=== PATIENT | male | born 1935 | race Caucasian/White ===

== ENCOUNTER 2017-08-09 03:37 | Emergency (ER) | payer MEDICARE ==
[~2017-08-09] VITALS: Ht 188 cm; Wt 102.0 kg
--- NOTE | ~2017-08-09 | HP ---
Unit #: [id number] #: [id number] Patient: LAZARUS SMITH SR [id number] [address] [place], [place] [address] [id number] MR#: [id number] NAME: LAZARUS SMITH ROOM: Age: 82 Sex: M Admission Date: 08/09/2017 : 1935 Attending Physician: Eliel Gardner D.O. Primary Care Physician: Rosario Diop HISTORY AND PHYSICAL CHIEF COMPLAINT Shortness of breath and chest discomfort. HISTORY OF PRESENT ILLNESS The patient is an 82-year-old male with history of coronary artery disease, anterolateral STEMI in 2010, LAD thrombectomy and stent in November 2011, systolic CHF with an EF of 35% to 40% in November 2011, hypertension, hyperlipidemia who presented to the emergency department with complaints of shortness of breath. The patient states that he woke at 3 a.m. with difficulty getting a deep breath. There was also epigastric and upper abdominal discomfort. He states that the pain was worse with deep inspiration. There was no associated nausea, vomiting, or diaphoresis. The patient has a history of GERD and he states that this discomfort was unlike what he has experienced in the past with his GERD and unlike what he experienced with his MD. He does state that he ate a late dinner. He is fairly active and uses a push mower and denies problems with chest discomfort with this activity or other exertional activities. A 2D echo in November 2011 showed an EF of 35% to 40% with distal anterior and apical wall hypokinesis. He had a left heart catheterization January 13, 2011 which showed an ejection fraction of 35% to 40%. RCA had a 40% to 50% proximal stenosis and a 40% to 50% mid stenosis. PDA had a mid 70% to 80% stenosis. Left circumflex had a 30% stenosis but with luminal irregularities. First diagonal had 30% proximal to mid luminal irregularities. LAD had mild proximal to mid calcifications. There was a bulky thrombotic proximal 90% stenosis in the LAD just after the first septal revenue cycle analyst. First diagonal had 20% to 30% proximal stenosis and was occluded in the mid portion. There were collaterals filling the distal first diagonal branch. PAST MEDICAL HISTORY 1. CAD with anterolateral STEMI in 2010. 2. LAD thrombectomy and stenting with Xience stent, November 12, 2011. 3. Hypertension. 4. Hyperlipidemia. 5. History of systolic CHF with an EF of 35% to 40% on 2D of November 2011. 6. History of urethral stricture with dilatation, December 2015. PAST SURGICAL HISTORY Knee. HOME MEDICATIONS Unit #: [id number] #: [id number] Patient: LAZARUS SMITH SR 1. Aspirin 81 mg daily. 2. Coreg 3.125 mg twice daily. 3. Proscar 5 mg daily. 4. Losartan 25 mg daily. 5. Zocor 20 mg nightly. 6. Aldactone 25 mg daily. 7. Trimethoprim 100 mg q.a.m. ALLERGIES No known drug allergies. SOCIAL HISTORY He has a history of smoking two packs daily and quit smoking 20-25 years ago. He denies alcohol use or illicit drug use. He is and lives at home with his . He is retired from [employer] and the [employer]. FAMILY HISTORY His father had a heart problem. He denied in his early 80s of a MD. No family history of premature coronary artery disease. REVIEW OF SYSTEMS GENERAL: Denies recent fevers, chills, or flu-like symptoms. He does have fatigue and states that he can nap very easily. SKIN: No rashes or hives. HEENT: Head is normocephalic and atraumatic. There are no xanthelasmas. Oral mucosa is pink and moist. He does wear hearing aids but no recent hearing loss. NECK: Denies swollen glands or pain. PULMONARY: Denies cough, hemoptysis, or wheezing. Again, he does snore and his comments that she occasionally has to shake him when he stops breathing at night. CARDIAC: Chest pain as discussed above. Denies palpitations, tachycardia, or orthopnea. GASTROINTESTINAL: Denies nausea, vomiting, diarrhea, or melena. GENITOURINARY: Denies hematuria or dysuria. EXTREMITIES: Denies swelling. SPINE: Denies chronic pain. NEUROLOGIC: He does have occasional dizziness with position change and feels that this has become worse over the past few months. He denies any stroke symptoms such as weakness or numbness on one side and also denies syncope. DIAGNOSTIC STUDIES Current labs and tests: LABORATORY: BNP 124. Troponin less than 0.05 at 6:17 and less than 0.05 at 4:40 a.m. PT 10.9, INR 1. Sodium 141, potassium 4, chloride 109, CO2 of 25, BUN 29, creatinine 0.9, glucose 107. White blood cells 4.3, hemoglobin 13.3, hematocrit 40.3, platelets 149,000. IMAGING: Chest x-ray showed cardiomegaly. CT shows no PE. CARDIOVASCULAR: EKG shows sinus bradycardia with left axis deviation, poor R-wave progression. Unit #: [id number] #: [id number] Patient: LAZARUS SMITH SR PHYSICAL EXAMINATION VITAL SIGNS: Blood pressure is 119/80, heart rate 59 and regular, respirations 26 and regular, temperature 97.8, O2 saturation 98% on room air. Weight is 225 pounds. GENERAL: Patient is well developed, well nourished, mildly obese, white male in no acute distress. Alert and oriented x3. SKIN: No rashes or hives. HEENT: Head is normocephalic and atraumatic. There are no xanthelasmas. Oral mucosa is pink and moist. NECK: No JVD or carotid bruit. SPINE: No scoliosis. CHEST: Clear to auscultation bilaterally without wheezes, rhonchi, rales, or accessory muscle use. CORONARY: Regular rate and rhythm without murmur, gallop, rub, or lift. ABDOMEN: Soft, nontender, nondistended. Positive bowel sounds x4. The abdominal pulsation is not enlarged. EXTREMITIES: No clubbing, cyanosis, or edema. NEUROLOGIC: Awake, alert, oriented x3. ASSESSMENT AND PLAN 1. Chest pain and shortness of air. 2. Coronary artery disease with history of anterolateral myocardial infarction in 2010. 3. History of LAD stent in November 2011. 4. Hypertension. 5. Hyperlipidemia. 6. History of systolic congestive heart failure with an ejection fraction of 35% to 40% in 2011. 7. Gastroesophageal reflux disease. 8. Possible obstructive sleep apnea. Mr. Smith's case is discussed with Dr. Song Chen. We will repeat a troponin. If this is negative, we will either consider pursuing a stress Cardiolite and echo today or we may give the patient the option of going home and following up with Dr. Medel for further recommendations. This was discussed with Dr. Chen prior to dictation. Dictated by Chris BrownC. for Song Chen M.D. CMG/lauren TD: 08/09/2017 10:35 JOB #: [id number] HISTORY AND PHYSICAL Page 1 of 1 X X HISTORY AND PHYSICAL
--- NOTE | ~2017-08-09 | CT16 ---
[facility] A Service of [facility] RADIOLOGY TEXT RESULTS PATIENT: LAZARUS SMITH SR LOCATION: [facility] : [birth year] UNIT #: [id number] AGE: [address]: Eliel Gardner DO SEX: M ORDER DR: [id number] [facility] [address] [place], [place] [address] [id number] MR#: [id number] #: [id number] NAME: LAZARUS SMITH : 1935 SEX: M STUDY DATE/TIME: 08/09/2017 7:37 UNIT: [facility] ROOM: STUDY DESCRIPTION: CT Angio Chest for PE Attending Physician: Eliel Gardner D.O. Ordering Physician: Eliel Gardner D.O. Primary Care Physician: Rosario Diop MEDICAL IMAGING REPORT This report is preliminary unless electronic signature is present EXAM CT chest with contrast PE protocol. INDICATIONS Shortness of breath beginning today. Elevated D-dimer. TECHNIQUE CT of the chest was performed following administration of IV contrast. Coronal and sagittal reformatted images were obtained. Pulmonary embolism protocol. This CT exam was performed with one or more of the following radiation dose reduction techniques: automatic exposure control, adjustment of mA and/or kV according to patient size, and iterative reconstruction. COMPARISON No comparisons available. FINDINGS There is no evidence for pulmonary embolism. Enlarged thyroid with multiple nodules suggesting multinodular goiter. This can be evaluated with thyroid ultrasound if not previously performed. Gynecomastia. No evidence of lymphadenopathy or pleural effusion. Emphysema. 6 mm nodule in the right middle lobe. 6-month followup chest CT recommended to document stability. There is no dense area of consolidation. Limited imaging of the upper abdomen is unremarkable. The bone windows are unremarkable. IMPRESSION 1. No evidence of pulmonary embolism. 2. Emphysema. 3. 6 mm nodule in the right middle lobe. This can be followed in 6 months to document stability. [facility] A Service of [facility] RADIOLOGY TEXT RESULTS PATIENT: LAZARUS SMITH SR LOCATION: [facility] : 36 UNIT #: [id number] AGE: [address]: Eliel Gardner DO SEX: M ORDER DR: Dictated by... Neal Mcclellan M.D. THIS IS AN ELECTRONICALLY VERIFIED REPORT Neal Mcclellan M.D. at 08/14/2017 11:20 AM ARS/ayla TD: 08/09/2017 11:45 JOB #: [id number] MEDICAL IMAGING REPORT Page 1 of 1 COPY
--- NOTE | ~2017-08-09 | EKG ---
PATIENT: LAZARUS SMITH UNIT #: [id number] Ventricular Rate: 58 BPM Atrial Rate: 58 BPM P-R Interval: 178 ms QRS Duration: 84 ms Q-T Interval: 414 ms QTC Calculation(Bezet): 406 ms P [place]: 2 degrees Calculated R [place]: -37 degrees Calculated T [place]: 26 degrees Diagnosis Line: Sinus bradycardia with Premature atrial complexes Diagnosis Line: Left axis deviation Diagnosis Line: Abnormal ECG Diagnosis Line: When compared with ECG of 19-DEC-2015 12:08, Diagnosis Line: Premature atrial complexes are now Present Diagnosis Line: Confirmed by JOSE RAUL CHU MD ([id number]) on Diagnosis Line: 08/09/2017 10:54:10 AM INTERPRETING MD: VLAD BRODERICK
--- NOTE | ~2017-08-09 | CR72 ---
[facility] A Service of [facility] & [facility] RADIOLOGY TEXT RESULTS PATIENT: LAZARUS SMITH SR LOCATION: [facility] : 36 UNIT #: [id number] AGE: [address]: Eliel Gardner DO SEX: M ORDER DR: [id number] [facility] [address] [place], [place] [address] [id number] E MR#: [id number] Acc #: [id number] NAME: LAZARUS SMITH : 1935 SEX: M STUDY DATE/TIME: 08/09/2017 4:04 UNIT: [facility] ROOM: STUDY DESCRIPTION: CR Chest Single View Portable Attending Physician: Eliel Gardner D.O. Ordering Physician: Stephanie Weiss M.D. Primary Care Physician: Rosario Diop MEDICAL IMAGING REPORT This report is preliminary unless electronic signature is present EXAM Portable chest. INDICATIONS Shortness of air and chest pain today. PROCEDURE Frontal view of the chest COMPARISON 11/12/2011. FINDINGS Moderate cardiomegaly. No dense consolidation. Pulmonary vessels are within normal limits. No pleural fluid or pneumothorax. IMPRESSION Cardiomegaly. No active process. Dictated by... Lamberto Donato M.D. THIS IS AN ELECTRONICALLY VERIFIED REPORT Lamberto Donato M.D. at 08/13/2017 8:57 AM EED/ayla TD: 08/09/2017 08:49 JOB #: [id number] MEDICAL IMAGING REPORT Page 1 of 1 COPY
--- NOTE | ~2017-08-09 | EKG ---
PATIENT: LAZARUS SMITH UNIT #: [id number] Ventricular Rate: 55 BPM Atrial Rate: 55 BPM P-R Interval: 198 ms QRS Duration: 84 ms Q-T Interval: 438 ms QTC Calculation(Bezet): 419 ms P [place]: 27 degrees Calculated R [place]: -29 degrees Calculated T [place]: 24 degrees Diagnosis Line: Sinus bradycardia Diagnosis Line: Otherwise normal ECG Diagnosis Line: When compared with ECG of 09-AUG-2017 04:11, Diagnosis Line: Premature atrial complexes are no longer Present Diagnosis Line: Confirmed by PEG MORRIS MD ([id number]) on 08/11/2017 Diagnosis Line: 10:58:17 PM INTERPRETING MD: ARTURO BRODERICK
[~2017-08-09 03:37] MED LIST: ALDACTONE25 MG PO; ASPIRIN PO; ASPIRIN81 M2 PO; CARVEDILOL3.125 MG PO; COZAAR25 MG PO; CYANOCOBAL1000 MCG/1 INJ; FINASTERIDE5 M1 PO; FLOMAX0.4 M1 PO; HYDROCODONE-APA1 T41 PO; LEVAQUIN750 MG PO; MACROBID 100 M100 MG PO; PROCARDIA10 MG PO; PYRIDIUM100 MG PO; SIMVASTATIN20 MG PO; TRIMPEX100 MG PO; ZOCOR PO
[2017-08-09 04:53] LABS: POC - CKMB 1.1 ng/mL (0.0-7.9); POC - TROPONIN <0.05 ng/mL (<=0.05)
[2017-08-09 05:26] LABS: EOSINOPHIL# 0.2 X10e3 (0-0.7); EOSINOPHIL% 5.5 % (0.0-7.0); HEMATOCRIT 40.3 % (38.0-50.0); HEMOGLOBIN 13.3 gm/dL (13.0-16.0); LYMPHOCYTE# 1.4 X10e3 (1.0-3.5); LYMPHOCYTE% 31.4 % (17.0-45.0); MEAN CELL VOLUME 90.7 FL (83-96); MEAN CORPUSCULAR HGB CONC 33.1 g/dL (30-36); MEAN PLATELET VOLUME 8.5 FL (6.5-11.5); MONOCYTE# 0.5 X10e3 (0-1.0); MONOCYTE% 12.5 % (3.0-12.0); NEUTROPHIL# 2.1 X10e3 (1.5-7.1); NEUTROPHIL% 49.6 % (40-75); PLATELET COUNT 149 X10e3 (140-420); RED BLOOD COUNT 4.44 X10e (3.90-5.60); RED CELL DISTRIBUTION WIDTH 13.6 % (11.0-15.5); WHITE BLOOD COUNT 4.3 X10e3 (4.0-10.5)
[2017-08-09 05:37] LABS: DIFF IND NO
[2017-08-09 05:47] LABS: PARTIAL THROMBOPLASTIN TIME 24.8 SECONDS (23.5-31.3); PROTHROMBIN TIME (PATIENT) 10.9 SECONDS (10.0-11.7)
[2017-08-09 06:12] LABS: ALBUMIN SERUM 3.7 g/dL (3.5-5.0); BILIRUBIN, DIRECT 0.1 mg/dL (0.0-0.2); BILIRUBIN,INDIRECT 0.5 mg/dL (0.0-0.9); BILIRUBIN,TOTAL 0.6 mg/dL (0.2-2.0); BUN/CREATININE RATIO 32.22; CREATININE SERUM 0.9 mg/dL (0.6-1.4); GLOM FILT RATE Estimated 79.8 mL/min (>60); PROTEIN TOTAL SERUM 6.5 g/dL (6.0-8.3)
[2017-08-09 06:19] LABS: POC - CKMB <1.0 ng/mL (0.0-7.9); POC - TROPONIN <0.05 ng/mL (<=0.05)
[2017-08-09] MEDS ORDERED: KCL PO (09:34)
[2017-08-09] MEDS ORDERED: COZAAR PO (09:34)
[2017-08-09] MEDS ORDERED: COREG3.125 MG PO (09:34)
[2017-08-09] MEDS ORDERED: PATIENT'S PHARMACY (09:34)
[2017-08-09] MEDS ORDERED: ZOCOR PO (09:34)
[2017-08-09] MEDS ORDERED: ALDACTONE PO (09:35)
[2017-08-09] MEDS ORDERED: KEFLEX500 M1 PO (09:35)
[2017-08-09 11:30] LABS: CHOLESTEROL 139 mg/dL (0-200); HDL CHOLESTEROL 61 mg/dL (29-75); LDL CHOLESTEROL 56 mg/dL (-130); LDL/HDL RATIO 1 RATIO (0-4); TRIGLYCERIDES 110 mg/dL (10-160)
== END 2017-08-09 12:28 | disposition home or self-care (01) ==
LOC: CED 03:37
PROVIDERS: Emergency Medicine
DX: R06.02 Shortness of breath (principal); I10 Essential (primary) hypertension; I25.10 Atherosclerotic heart disease of native coronary artery without angina pectoris; E78.00 Pure hypercholesterolemia, unspecified; Z95.818 Presence of other cardiac implants and grafts; Z79.899 Other long term (current) drug therapy
CPT/HCPCS: 36415; 71010; 71275; 80048; 80061; 80076; 82553; 83036; 83880; 84443; 84484; 85025; 85379; 85610; 85730; 93005; 99285; Q9967